=== PATIENT | male | born 1975 ===

== ENCOUNTER 2023-10-20 15:13 | Emergency (ER) | payer BC, SELFPAY ==
[2023-10-20 15:15] VITALS: BP 132/94
--- NOTE | 2023-10-20 16:27 | ED.GENMED ---
History of Present Illness
<AIDAN Arias - Last Filed: 10/21/23 09:32>
General
Chief Complaint: Musculo-Skeletal Complaint
Source: patient
Exam Limitations: none
Time Seen by Provider: 10/20/23 15:54
Nursing documentation reviewed up to this point in time: agreed with
History of Present Illness
History of Present Illness:
Patient is a 48-year-old male who complains of pain to this left thigh for the past 2 nights. He denies any actual injury. He reports pain is worse with trying to stand and bear weight on it though he does report it seems to be a little better
once he starts to move. He has been taking Advil without relief. Though he denies injury he said there is a possibility that he hit his leg with the speaker the other night but does not recall. He denies any fever chills swelling redness. He
denies any back pain. He reports he has had sciatica in the past this does not feel the same. He denies any excessive overuse with like. Denies excessive exercise.
Review of Systems
<AIDAN Arias - Last Filed: 10/21/23 09:32>
Review of Systems
Allergies reviewed?: Yes
All Other Systems: ROS reviewed and negative except as documented in HPI and ROS
Constitutional: Reports no symptoms; Denies fever, fatigue or chills
Musculoskeletal: Reports other (left thigh pain denies redness denies swelling )
Skin: Reports no symptoms
Neurological: Reports no symptoms
Hematologic/Lymphatic: Reports no symptoms
Psychiatric: Reports no symptoms
Phy Exam
<AIDAN Arias - Last Filed: 10/21/23 09:32>
General Physical Exam
General Presentation: no apparent distress
General age: appears stated age
General Skin: warm and dry
General Habitus: normal
General Hydration: appears well hydrated
Neurological Exam
Neurological Exam: alert and oriented x3
Musculoskeletal Exam
Musculoskeletal Exam: other (Normal inspection to left thigh left lower extremity no obvious swelling strong pulses no erythema. Full range of motion to left hip. )
Skin Exam
Skin Exam: normal color and warm/dry
Course
<AIDAN Arias - Last Filed: 10/21/23 09:32>
Orders/Labs/Results
Orders:
Orders
10/20/23 16:27
Hip, Left 2-3 Views [CR Hip - LT w/wo Pel 2-3 Vw*] Urgent
Comment:
Reason For Exam: pain
Include a pelvis x-ray?: Yes
10/20/23 16:29
Acetaminophen [Tylenol] 1,000 mg PO NOW STA
Dexamethasone Pf [Decadron] 10 mg PO NOW STA
Ketorolac [Toradol] 30 mg IM NOW STA
Lidocaine [Lidocaine 4% Patch] 1 patch TOPICAL NOW STA
Vital Signs
Initial and Last Documented VS:
Initial Vital Signs
Temp Pulse Resp BP Pulse Ox
99.1 F 108 18 132/94 96
10/20/23 15:15 10/20/23 15:15 10/20/23 15:15 10/20/23 15:15 10/20/23 15:15
Last Documented Vital Signs
Temp Pulse Resp BP Pulse Ox
99.1 F 94 18 118/72 98
10/20/23 15:15 10/20/23 18:13 10/20/23 18:13 10/20/23 18:13 10/20/23 18:13
Patient Admitting Clerk consulted with Physician
Patient Admitting Clerk consulted with physician?: Yes
Name of Physician Consulted: carlie
<Scott Duggan DO - Last Filed: 10/20/23 16:51>
Orders/Labs/Results
Orders:
Orders
10/20/23 16:27
Hip, Left 2-3 Views [CR Hip - LT w/wo Pel 2-3 Vw*] Urgent
Comment:
Reason For Exam: pain
Include a pelvis x-ray?: Yes
10/20/23 16:29
Acetaminophen [Tylenol] 1,000 mg PO NOW STA
Dexamethasone Pf [Decadron] 10 mg PO NOW STA
Ketorolac [Toradol] 30 mg IM NOW STA
Lidocaine [Lidocaine 4% Patch] 1 patch TOPICAL NOW STA
Vital Signs
Initial and Last Documented VS:
Initial Vital Signs
Temp Pulse Resp BP Pulse Ox
99.1 F 108 18 132/94 96
10/20/23 15:15 10/20/23 15:15 10/20/23 15:15 10/20/23 15:15 10/20/23 15:15
Last Documented Vital Signs
Temp Pulse Resp BP Pulse Ox
99.1 F 94 18 118/72 98
10/20/23 15:15 10/20/23 18:13 10/20/23 18:13 10/20/23 18:13 10/20/23 18:13
<AIDAN Arias - Last Filed: 10/21/23 09:32>
MDM/Problems Addressed
Differential Diagnosis Includes:
Not limited to sciatica, muscle strain, less likely DVT
MDM/Problems Addressed:
symptoms are consistent muscular type pain/sciatica. Patient with no obvious swelling no risk for limb suspicion for DVT. No evidence of infection on exam. Patient is afebrile in no acute distress . X-rays negative. Patient eval by ED
physician. Patient medicated with Decadron, Tylenol, Toradol. Will DC with steroids for the next several days with close outpatient follow-up. He is to return if any worsening of symptoms.
<AIDAN Arias - Last Filed: 10/21/23 09:32>
*Radiology
Radiology exam reviewed: radiology read reviewed
*Critical Care Note
Total Time (30-74mins, 75-104mins- exclusive of procedures): Not Applicable
ED Attending Note
<AIDAN Arias - Last Filed: 10/21/23 09:32>
-
Portions of this chart may have been created with voice recognition software.� Occasional wrong word or��sound alike� substitutions may have occurred due to the inherent limitations of voice recognition software.
<Scott Duggan DO - Last Filed: 10/20/23 16:51>
ED Attending Note
Patient seen and examined by attending physician: Yes
I performed the substantive portion of visit, reviewed & personally made and approve the management plan that is documented in note by myself or CARLINE.: Yes
ED Attending Note:
48yo with focal R posterior leg pain. exam: Right focal tenderness at the insertion of the hamstrings at the right buttocks. Some tenderness at the posterior aspect of the greater troches. Normal perfusion, no palpable cords, no edema. Assessment
and plan: Question bursitis versus hamstring injury versus neuropathic pain. Cover with steroids, NSAIDs and outpatient follow-up
Discharge Plan
Departure
Patient Disposition: Home (Routine Discharge)
Date of Disposition: 10/20/23
Time of Disposition: 18:09
Patient with high blood pressure during this ER visit?: Yes
Condition: Fair
Covid-19: Not Applicable
Discharge Problem:
Pain in left thigh
Instructions: Muscle and Bone Pain (DC)
Prescriptions:
New
prednisone 10 mg Tablet
See Rx Instructions .ROUTE .COMPLEX Qty: 30 0RF
Rx Instructions:
Take By Mouth:
40 mg daily x3 days, 30 mg daily x3 days,
20 mg daily x3 days, 10 mg daily x3 days.
Referrals:
NONE,* [Family Provider] -
Activity Restrictions/Additional Instructions:
As discussed a prescription for steroids was sent to your pharmacy take as directed. In addition you may alternate with Tylenol. Follow-up with your family doctor next 2 days for reevaluation return if any worsening of symptoms
Interventions
Interventions:
*Risk Screen - Suicide Last Done: 10/20/23 15:15
*General Assessment Last Done: 10/20/23 15:15
*Neglect/Abuse Screening Last Done: 10/20/23 15:15
ED- Fall Risk Assessment Last Done: 10/20/23 18:25
*ED COVID-19 Vaccine History Last Done: 10/20/23 18:25
*Nursing Disposition Last Done: 10/20/23 18:25
ED-Musculoskeletal Assessment Last Done: 10/20/23 18:14
Discharge Date and Time
Discharge Date/Time: 10/20/23 18:25
Print Language: [id number]
[2023-10-20] MEDS: TYLENOL 1000 MG PO (16:37)
[2023-10-20] MEDS: DECADRON 10 MG PO (16:37)
[2023-10-20] MEDS: TORADOL 30 MG IM (16:37)
[2023-10-20] MEDS: LIDOCAINE 4% PATCH 1 PATCH TOPICAL (16:38)
[2023-10-20 18:13] VITALS: BP 118/72
== END 2023-10-20 18:25 | disposition home or self-care (01) ==
LOC: EMR 15:13
PROVIDERS: EMERGENCY PHYSICIAN Emergency Medicine
DX: M79.652 Pain in left thigh (principal); M25.552 Pain in left hip; R03.0 Elevated blood-pressure reading, without diagnosis of hypertension; M54.30 Sciatica, unspecified side
CPT/HCPCS: 99284; 96372; 73502